=== PATIENT | male | born 1975 | race Caucasian/White ===

== ENCOUNTER 2016-09-16 10:19 | Emergency (ER) | payer OTHER ==
[~2016-09-16] VITALS: Ht 170.2 cm; Wt 94.5 kg
[2016-09-16 11:32] VITALS: BP 131/85
[2016-09-16] MEDS ORDERED: AMLO10TA2 PO (11:55)
[2016-09-16] MEDS ORDERED: LISI-167 PO (11:55)
[2016-09-16] MEDS ORDERED: HYDR25TA6 PO (11:55)
[2016-09-16 12:36] LABS: BLOOD UREA NITROGEN 17 mg/dL (7-18)
[2016-09-16 12:37] LABS: IS PT STATUS REG ER OR PRE ER? YES
[2016-09-16] MEDS ORDERED: ALBUTEROL/IPRATROPIUM 2.5MG/0.5MG, 3 ML ONE (12:52)
[2016-09-16] MEDS ORDERED: ALBUTEROL/IPRATROPIUM 2.5MG/0.5MG, 3 ML NPPB ONE (13:00)
== END 2016-09-16 13:34 | disposition home or self-care (01) ==
LOC: ED 13:28
DX: R07.2 Precordial pain (principal); J98.01 Acute bronchospasm; J45.909 Unspecified asthma, uncomplicated; I10 Essential (primary) hypertension
CPT/HCPCS: 36415; 71010; 80048; 82040; 83880; 84443; 84484; 85025; 93005; 94640; 99285

== ENCOUNTER → 2017-04-22 | Outpatient (CLI) | payer OTHER ==
[~2017-04-22] MED LIST: AMLO10TA2 PO; HYDR25TA6 PO; LISI-167 PO
== END | disposition home or self-care (01) ==
LOC: CFH 06:50
PROVIDERS: ATTEND Nurse Practitioner
DX: G47.30 Sleep apnea, unspecified (principal); E78.5 Hyperlipidemia, unspecified; I10 Essential (primary) hypertension; Z82.49 Family history of ischemic heart disease and other diseases of the circulatory system
CPT/HCPCS: 78452; 93017; 93306; A9502

== ENCOUNTER → 2017-05-04 | Outpatient (CLI) | payer OTHER | LOC: CFH 08:14 | PROVIDERS: ATTEND Internal Medicine | DX: R91.1 Solitary pulmonary nodule (principal) | CPT/HCPCS: 71250 ==

== ENCOUNTER 2018-04-18 09:36 | Emergency (ER) | payer OTHER ==
[~2018-04-18] VITALS: Ht 172.7 cm; Wt 109.9 kg
[~2018-04-18 09:36] MED LIST changes: -AMLO10TA2 PO; +AMLO10TA8 PO
--- NOTE | 2018-04-18 10:03 | NUR ---
PT WALKED BACK FROM LOBBY TO ROOM AT THIS TIME. STEADY UPON AMBULATION. NAD NOTED.
--- NOTE | 2018-04-18 10:18 | NUR ---
THIS IS A 42 YO MALE WHO PRESENTS TO THE ER C/O THAT OVER THE LAST FEW WEEKS HAS HAD INCREASING EPISODES OF BRIEF SHARP PAIN ON THE RIGHT AND LEFT SIDE OF CHEST RADIATING INTO RIGHT SHOULDER AND ARM. PT DESCRIBES THE PAIN "DULL, SOMETIMES SHARP", RATES IT AT 7/10 WHEN IT IS PRESENTS AND STATES THERE ARE NO SPECIFIC AGGREVAGTING OR RELIEVING FACTOR. PT CURRENTLY DENIES PAIN. SKIN PWD. RESP EVEN AND EQAUL. PT NSR 90'S ON THE MONITOR. PT ON CONT BP, CARDIAC AND O2 MONITORS. CALL LIGHT WITHIN REACH. WILL CONT TO MONITOR PT.
[2018-04-18] MEDS ORDERED: ASPIRIN 81 MG TABLET CHEW PO ONE (11:00)
[2018-04-18] MEDS ORDERED: ALPRazolam 1MG TABLET PO ONE (11:00)
[2018-04-18] MEDS ORDERED: ASPIRIN 81 MG TABLET CHEW ONE (11:10)
[2018-04-18 11:16] LABS: BASOPHILS # (AUTO) 0.03 x10^3/uL (0-0.1); BASOPHILS % (AUTO) 1 % (0-1); EOSINOPHILS # (AUTO) 0.09 x10^3/uL (0-0.4); EOSINOPHILS % (AUTO) 1 % (1-7); LYMPHOCYTES # (AUTO) 1.96 x10^3/uL (1-3.4); LYMPHOCYTES % (AUTO) 28 % (22-44); MD NO; MEAN CORPUSCULAR HEMOGLOBIN 29.8 pg (27.5-34.5); MEAN CORPUSCULAR HGB CONC 33.7 g/dL (33.2-36.2); MEAN CORPUSCULAR VOLUME 88.4 fL (81-97); MEAN PLATELET VOLUME 8.8 fL (7.4-10.4); MONOCYTES % (AUTO) 7 % (2-9); NEUTROPHILS # (AUTO) 4.49 x10^3/uL (1.8-6.8); NEUTROPHILS % (AUTO) 64 % (42-75); PLATELET COUNT 221 x10^3/uL (130-400); RED BLOOD COUNT 5.09 x10^6/uL (4.38-5.82); RED CELL DISTRIBUTION WIDTH 13.3 % (9.4-14.8)
--- NOTE | 2018-04-18 11:25 | NUR ---
DIANA SAINI AT BEDSIDE FOR EVAL. PT CURRENTLY RESTING ON GURNEY. NAD NOTED. SKIN PWD. RESP EVEN AND EQAUL. PT AO X 4. SKIN PWD. PT CONT TO DENY PAIN. HR NSR 80S. AT BEDSIDE. PT AND AWARE WE ARE WAITING FOR LAB RESULTS. PT ON CONT BP, CARDIAC AND O2 MONITORS. CALL LIGHT WITHIN REACH. WILL CONT TO MONITOR PT.
[2018-04-18 11:30] LABS: ALANINE AMINOTRANSFERASE 82 U/L (12-78); ALBUMIN 4.1 g/dL (3.4-5.0); ANION GAP 7 mmol/L (5-15); CHLORIDE 108 mmol/L (98-107); CREATININE 0.94 mg/dL (0.7-1.3)
[2018-04-18 11:33] LABS: ALKALINE PHOSPHATASE 73 U/L (45-117); BILIRUBIN,TOTAL 0.5 mg/dL (0.2-1.0); TOTAL PROTEIN 7.3 g/dL (6.4-8.2); TROPONIN I < 0.015 ng/mL (0.000-0.045)
--- NOTE | 2018-04-18 12:21 | NUR ---
DIANA SAINI AT BEDSIDE FOR RECHECK/EXPLANATION OF RESULTS.
[2018-04-18 12:27] VITALS: BP 124/77
== END 2018-04-18 12:29 | disposition home or self-care (01) ==
LOC: ED 12:26
DX: R07.89 Other chest pain (principal); F17.210 Nicotine dependence, cigarettes, uncomplicated; J45.909 Unspecified asthma, uncomplicated; I10 Essential (primary) hypertension
CPT/HCPCS: 36415; 71045; 80053; 83605; 84484; 85025; 93005; 99284

== ENCOUNTER → 2019-01-04 | Outpatient (CLI) | payer OTHER | END | disposition home or self-care (01) | LOC: CFH 08:25 | PROVIDERS: ATTEND Nurse Practitioner | DX: R91.1 Solitary pulmonary nodule (principal); F17.200 Nicotine dependence, unspecified, uncomplicated; F10.20 Alcohol dependence, uncomplicated | CPT/HCPCS: 71250 ==